=== PATIENT | female | born 1980 | race Caucasian/White ===

== ENCOUNTER → 2016-02-28 | Outpatient (CLI) | payer BC | END | disposition home or self-care (01) | LOC: C.LAB 15:23 | PROVIDERS: ATTEND Obstetrics & Gynecology | DX: O02.0 Blighted ovum and nonhydatidiform mole (principal) ==

== ENCOUNTER → 2016-03-05 | Outpatient (CLI) | payer BC | END | disposition home or self-care (01) | LOC: C.LAB 18:34 | PROVIDERS: ATTEND Obstetrics & Gynecology | DX: O02.0 Blighted ovum and nonhydatidiform mole (principal) ==

== ENCOUNTER → 2016-03-18 | Outpatient (CLI) | payer BC | END | disposition home or self-care (01) | LOC: C.LAB 10:30 | PROVIDERS: ATTEND Obstetrics & Gynecology | DX: O02.0 Blighted ovum and nonhydatidiform mole (principal) ==

== ENCOUNTER → 2016-03-25 | Outpatient (CLI) | payer BC | END | disposition home or self-care (01) | LOC: C.LAB 10:26 | PROVIDERS: ATTEND Obstetrics & Gynecology | DX: O02.0 Blighted ovum and nonhydatidiform mole (principal) ==

== ENCOUNTER → 2016-04-25 | Outpatient (CLI) | payer BC | END | disposition home or self-care (01) | LOC: C.LAB 16:44 | PROVIDERS: ATTEND Obstetrics & Gynecology | DX: O02.0 Blighted ovum and nonhydatidiform mole (principal) ==

== ENCOUNTER → 2016-07-18 | Outpatient (CLI) | payer BC | END | disposition home or self-care (01) | LOC: C.LAB 16:14 | PROVIDERS: ATTEND Obstetrics & Gynecology | DX: Z34.81 Encounter for supervision of other normal pregnancy, first trimester (principal) ==

== ENCOUNTER → 2016-07-20 | Outpatient (CLI) | payer BC | END | disposition home or self-care (01) | LOC: C.LAB 15:55 | PROVIDERS: ATTEND Obstetrics & Gynecology | DX: Z34.81 Encounter for supervision of other normal pregnancy, first trimester (principal) ==

== ENCOUNTER → 2016-07-30 | Outpatient (CLI) | payer BC | END | disposition home or self-care (01) | LOC: C.PAPS 11:56 | PROVIDERS: ATTEND Obstetrics & Gynecology | DX: Z34.81 Encounter for supervision of other normal pregnancy, first trimester (principal) ==

== ENCOUNTER → 2016-07-30 | Outpatient (CLI) | payer BC ==
[2016-08-03 13:59] LABS: CHLAMYDIA TRACH RNA*** NOT DETECTED (NOT DETECTED); GC (NEIS GONORRHOEAE)RNA** NOT DETECTED (NOT DETECTED)
== END | disposition home or self-care (01) ==
LOC: C.LABSPEC 17:38
PROVIDERS: ATTEND Obstetrics & Gynecology
DX: Z34.81 Encounter for supervision of other normal pregnancy, first trimester (principal)

== ENCOUNTER → 2016-10-12 | Outpatient (CLI) | payer BC ==
[2016-10-12 10:46] LABS: BASO % 0.2 %; BASO ABS # 0.02 K/uL (0-0.2); COMPLETE YES; EOS % 2.5 %; HEMATOCRIT 29.9 % (37-47); IG% 0.2 %; LYMPH % 18.1 %; MEAN CELL VOLUME 95.2 fL (80-100); MEAN CORPUSCULAR HEMOGLOBIN 32.5 pg (25-34); MEAN CORPUSCULAR HGB CONC 34.1 g/dl (32-36); MEAN PLATELET VOLUME 10.5 fL (7.4-10.4); MONO % 6.2 %; NEUT % 72.8 %; PLATELET COUNT 181 K/uL (130-400); RED BLOOD COUNT 3.14 M/uL (4.2-5.4); WHITE BLOOD COUNT 9.38 K/uL (4.8-10.8)
[2016-10-12 11:45] LABS: GTGD 50 Grams
== END | disposition home or self-care (01) ==
LOC: C.LAB 08:38
PROVIDERS: ATTEND Obstetrics & Gynecology
DX: Z34.82 Encounter for supervision of other normal pregnancy, second trimester (principal)

== ENCOUNTER → 2017-02-21 | Outpatient (CLI) | payer BC ==
[~2017-02-21] MED LIST: PRENTAB26 PO
--- NOTE | 2017-03-29 10:12 | CODING QUERY NO DIAGNOSIS ---
TREATMENT RENDERED WITHOUT A DIAGNOSIS To promote full compliance with coding requirements relating to patient care, physician participation is requested in all cases of certified professional coder uncertainty. Please assist us with providing a diagnosis/symptom for the test(s) below: A diagnosis/symptom was not documented on your Order. A valid diagnosis/symptom is required to bill all insurances. Please remember that we are unable to code a diagnosis of rule out, probable, possible, questionable, or suspected. Tests that require a diagnosis: DOS: 02/21/17 * GRP B STREP CULT: REC/VAG DIAGNOSIS: Provider Signature: Date: Thank you [facility] Once completed, please kindly fax back to [phone] For questions please call [phone]
== END | disposition home or self-care (01) ==
LOC: C.LABSPEC 14:15
PROVIDERS: ATTEND Obstetrics & Gynecology
DX: Z34.83 Encounter for supervision of other normal pregnancy, third trimester (principal)

== ENCOUNTER 2017-03-20 06:39 | Inpatient (IN) | payer BC ==
[~2017-03-20] VITALS: Ht 154.9 cm; Wt 70.5 kg
[2017-03-20] MEDS ORDERED: LACTATED RINGER'S 1000ML 1,000 ML IV PRN (06:46)
[2017-03-20] MEDS ORDERED: BUTORPHANOL TARTRATE 1 MG/ML VIAL IV STA (06:53)
[2017-03-20] MEDS ORDERED: NURSING VERBAL MED ORDER ONE (07:00)
[2017-03-20] MEDS ORDERED: ONDANSETRON INJ 2 MG/ML 2 ML VIAL ONE ×2 (07:10→18:34)
[2017-03-20] MEDS ORDERED: BUPIVACAINE 0.25% 30 ML VIAL ONE (07:11)
[2017-03-20] MEDS ORDERED: EpHEDrine SULFATE INJ 50 MG/ML AMP ONE (07:11)
[2017-03-20] MEDS ORDERED: FENTANYL CITRATE INJ 50 MCG/1 ML 2 ML VIAL ONE ×2 (07:11→17:55)
[2017-03-20] MEDS ORDERED: FENTANYL 2MCG/ML ROPIV 1.25MG/ML 100ML BAG EPI ONE (07:12)
[2017-03-20] MEDS ORDERED: ONDANSETRON 8 MG/54 ML D5W IV ONE (07:15)
[2017-03-20 07:30] LABS: HEMATOCRIT 34.1 % (37-47); HEMOGLOBIN 11.5 g/dL (12.0-16.0); MEAN CELL VOLUME 96.1 fL (80-100); MEAN CORPUSCULAR HEMOGLOBIN 32.4 pg (25-34); MEAN CORPUSCULAR HGB CONC 33.7 g/dl (32-36); MEAN PLATELET VOLUME 10.3 fL (7.4-10.4); PLATELET COUNT 189 K/uL (130-400); RED CELL DISTRIBUTION WIDTH CV 14.3 % (11.5-14.5); RED CELL DISTRIBUTION WIDTH SD 50.6 fL (36.4-46.3); WHITE BLOOD COUNT 13.72 K/uL (4.8-10.8)
[2017-03-20] MEDS ORDERED: LACTATED RINGER'S 1000ML 500 ML IV PRN ×3 (07:55→19:36)
[2017-03-20] MEDS ORDERED: NALOXONE HCL INJ 1 MG in SODIUM CHLORIDE 0.9% 1000ML 1,000 ML IV PRN ×2 (07:55→19:36)
[2017-03-20] MEDS ORDERED: DiphenhydrAMINE HCL 50 MG/ML VIAL IV PRN ×2 (08:00→19:45)
[2017-03-20] MEDS ORDERED: NALOXONE HCL INJ 0.4 MG/1 ML VIAL/CARP IV PRN (08:00)
[2017-03-20] MEDS ORDERED: ONDANSETRON INJ 2 MG/ML 2 ML VIAL IV PRN ×2 (08:00→19:45)
[2017-03-20] MEDS ORDERED: EpHEDrine SULFATE INJ 50 MG/ML AMP IV PRN ×2 (08:00→19:45)
[2017-03-20] MEDS ORDERED: NALBUPHINE HCL INJ 10 MG/ML AMP IV PRN ×2 (08:00→19:45)
[2017-03-20] MEDS ORDERED: PRENTAB26 PO (08:53)
[2017-03-20 08:58] VITALS: Ht 154.9 cm; Wt 70.5 kg
[2017-03-20] MEDS ORDERED: OXYTOCIN 30 UNITS/500ML NSS IV PRN (10:00)
[2017-03-20] MEDS ORDERED: ONDANSETRON 8 MG/54 ML D5W IV PRN (11:15)
[2017-03-20] MEDS: FENTANYL 2MCG/ML ROPIV 1.25MG/ML 100ML BAG EPI PRN ×2 (13:27→13:30)
[2017-03-20] MEDS: ONDANSETRON INJ 2 MG/ML 2 ML VIAL IV PRN (15:06)
[2017-03-20] MEDS: LACTATED RINGER'S 1000ML 1,000 ML IV SCH ×2 (15:22→17:29)
[2017-03-20] MEDS ORDERED: LIDOCAINE/EPINEPHRINE 2% 1:200,000 20 ML SDV ONE (17:52)
[2017-03-20] MEDS ORDERED: CITRIC ACID/SODIUM CITRATE 15 ML UDC ONE (17:53)
[2017-03-20] MEDS ORDERED: OXYTOCIN INJ 10 UNITS/ML VIAL ONE ×3 (17:54→18:40)
[2017-03-20] MEDS ORDERED: MoRPHine SULFATE PF 1 MG/ML 10 ML AMP/VIAL ONE (17:55)
[2017-03-20] MEDS ORDERED: CEFOXITIN IV 2,000 MG in DEXTROSE 5% 50ML 50 ML IV SCH (18:00)
[2017-03-20] MEDS ORDERED: CITRIC ACID/SODIUM CITRATE 15 ML UDC PO ONE (18:00)
[2017-03-20] MEDS ORDERED: PHENYLEPHRINE 100MCG/ML 5ML SYR ONE ×2 (18:23→19:04)
[2017-03-20] MEDS ORDERED: METHYLERGONOVINE MALEATE 0.2 MG/ML AMP ONE (18:49)
--- NOTE | 2017-03-20 19:03 | HISTORY & PHYSICAL EXAMINATION ---
DATE OF ADMISSION: 03/20/2017 CHIEF COMPLAINT: Intrauterine at term, arrest of labor, tachycardia. HISTORY OF PRESENT ILLNESS: The patient is a 36-year-old 3, para 1. She has had 1 first trimester spontaneous AB. She has had an uneventful course. Her due date is 03/20/2017. She was admitted in spontaneous labor about 5 cm dilated, membranes intact. She received Stadol and then received epidural, membranes ruptured spontaneously after the epidural. We let her labor down, go to full dilatation and she pushed for 2-1/2 hours; however, after 2-1/2 hours of pushing, she was unable to engage and fix the head into the mid pelvis. She also started to develop low grade temperature and a persistent tachycardia. Section was called due to cephalopelvic disproportion and persistent tachycardia. It should be noted that her first delivery was at 37 weeks. At that time, the baby weighed about 6 pounds 14 ounces, girl. She pushed for 4 hours and required a vacuum assist for delivery. The patient states at that time they considered a and it is estimated at the present is not only 3 weeks further along, but significantly heavier than 6 pounds 14 ounces. PAST MEDICAL HISTORY: She has a girl at home, 4 years old in good health. ALLERGIES: STATES SHE IS ALLERGIC TO CODEINE. PAST SURGICAL HISTORY: She had D&E. MEDICAL HISTORY: No history of rheumatic fever, heart disease, heart murmur, diabetes, tuberculosis. SOCIAL HISTORY: No smoking. No alcohol intake. Works as a teacher. FAMILY HISTORY: Mom is 60, dad 60. Three sisters and 1 brother, all in good health. Mother and father in good health. REVIEW OF SYSTEMS: HEAD: No symptoms of frequent or severe headaches. EYES: No symptoms of blurred vision, double vision. EARS: No symptoms of frequent ear infections, difficulty hearing. NOSE: No symptoms of frequent nosebleeds, difficulty breathing through her nose. THROAT: No symptoms of frequent or severe sore throat, difficulty swallowing. RESPIRATORY SYSTEM: No history of asthma, chest pain, shortness of breath. PHYSICAL EXAMINATION: GENERAL: Well-developed, well-nourished 36-year-old white female, alert, oriented x3 and cooperative in no acute distress, appears her stated age. EYES: Conjunctivae are pink. Sclerae white. No evidence of jaundice. EARS: Had normal light reflex bilaterally. NOSE: Had normal mucosa. Septum is midline. There were no polyps. THROAT: Had no erythema or evidence of infection. Teeth are in good state of repair. HEAD: Was normocephalic, normal distribution of hair. NECK: Supple. Trachea midline. Thyroid is not enlarged. There is no adenopathy appreciated. Both carotids are of good intensity. CHEST: Clear to auscultation and percussion. No wheezes, rales or rhonchi appreciated. HEART: Had regular rhythm. S1 and S2 are normal. BREASTS: Normal. ABDOMEN: Revealed an estimated weight of 8 pounds. PELVIC: Large amount of molding, vertex presentation, 0 to -1 station. We were unable to palpate the sutures. MUSCULOSKELETAL: Revealed no calf tenderness. IMPRESSIONS OF THIS CASE: Status post dilatation and evacuation, arrest of labor secondary to cephalopelvic disproportion, suspected macrosomia, tachycardia.
[2017-03-20] MEDS ORDERED: OXYTOCIN INJ 20 UNITS in LACTATED RINGER'S 1000ML 1,000 ML IV SCH (19:20)
[2017-03-20] MEDS ORDERED: MAGNESIUM HYDROXIDE SUSP 30 ML UDC PO PRN (19:30)
[2017-03-20] MEDS ORDERED: SUPERCREAM 0.870 % 15GM JAR EXT PRN (19:30)
[2017-03-20] MEDS ORDERED: SENNA 8.6 MG TAB PO PRN (19:30)
[2017-03-20] MEDS ORDERED: HYDROCORTISONE ACETATE 25 MG SUPP PR PRN (19:30)
[2017-03-20] MEDS ORDERED: BENZOCAINE 20% AER SPR 82.5 GM CAN EXT PRN (19:30)
[2017-03-20] MEDS ORDERED: DIPHTHERIA/TETANUS/PERTUSSIS 0.5 ML SYR/VIAL IM. ONE (19:30)
[2017-03-20] MEDS ORDERED: LANOLIN OINT EXT PRN (19:30)
[2017-03-20] MEDS ORDERED: SODIUM CHLORIDE 0.9% 1000ML 1,000 ML IV PRN (19:36)
[2017-03-20] MEDS ORDERED: NALOXONE HCL INJ 0.08 MG in SYRINGE 1.8 ML IV PRN (19:36)
[2017-03-20] MEDS ORDERED: PROMETHAZINE HCL INJ 25 MG in SODIUM CHLORIDE 0.9% 50ML 50 ML IV STA (19:43)
[2017-03-20] MEDS ORDERED: NALOXONE HCL 0.4 MG/1 ML VIAL/CARP IV PRN (19:45)
[2017-03-20] MEDS ORDERED: NO NARCOTICS OR SEDATIVES SCH (19:45)
[2017-03-20] MEDS ORDERED: MoRPHine SULFATE PF 1 MG/ML 10 ML AMP/VIAL EPI PRN (19:45)
[2017-03-20] MEDS ORDERED: MEPERIDINE HCL 25 MG/ML CARP IV PRN (19:45)
[2017-03-20] MEDS: DOCUSATE SODIUM 100 MG CAP PO SCH (20:00)
--- NOTE | 2017-03-20 20:16 | Anesthesiology Progress Note ---
Anesthesia Post Op Note Date & Time Mar 20, 2017 at 20:16 Vital Signs Pain Intensity: 1 Notes Mental Status: alert / awake / arousable, participated in evaluation Pt Amnestic to Procedure: Yes Nausea / Vomiting: adequately controlled, improving with treatment Pain: adequately controlled Airway Patency, RR, SpO2: stable & adequate BP & HR: stable & adequate Hydration State: stable & adequate Neuraxial Anesthesia: was administered, sensory block is resolving Anesthetic Complications: no major complications apparent
--- NOTE | 2017-03-20 20:46 | OPERATIVE REPORT ---
DATE OF OPERATION: 03/20/2017 PROCEDURE: Primary low segment section. INDICATIONS FOR SURGERY: Arrest of labor and tachycardia. PREOPERATIVE DIAGNOSES: Cephalopelvic disproportion, suspected macrosomia. POSTOPERATIVE DIAGNOSIS: Delivered live 8 pound female infant direct OP. SURGEON: Dr. Ma. WINE SPECIALIST: Dr. Carty. ESTIMATED BLOOD LOSS: 600 mL. ANESTHESIA: Spinal. OPERATIVE FINDINGS AND PROCEDURE: The patient had been brought to the OR table, correctly identified by armband and conversation. She had an epidural, but the effectiveness of the epidural was marginal, so the catheter was removed and a spinal was administered and good spinal level was obtained. Lower abdomen was painted with an alcohol based sterilizing solution, draped in usual sterile fashion. Adequacy of the anesthesia was tested and was found to be good and a Pfannenstiel incision was made, carried down to the anterior fascia by sharp dissection. Hemostasis was secured by electrocauterization. Fascia was incised transversely the underlying muscle by blunt and sharp dissection. Recti muscles were in the midline. Peritoneum was carefully raised and entered. The lower uterine segment was exposed with a bladder blade. The bladder was pretty high due to the fact that the patient was in labor for a long time. Incision was made above the vesicouterine fold. The bladder was undermined bluntly and pushed out of the operative field. Lower uterine segment was scored with a knife. On entering the uterine cavity, cord popped out, head was in the pelvis in a direct occiput posterior position. I dislodged the head with my right hand, got my left hand down front of the head, rotated the head to direct occiput anterior position and then delivered through the lower uterine segment. Following this, cord was clamped and cut. The was attended to by the furniture delivery driver who was present at the time of delivery. Cord gases were sent. Cord blood was sent. A culture was taken of the shiny side of the placenta for aerobic and anaerobic bacteria. Placenta was then removed manually. Uterus was cleansed with a clean sponge. Uterus, tubes, and ovaries were brought out through the incision. The lower uterine defect was grasped with ringed forceps along with the upper uterine defect and then sutured with a continuous interlocking suture of heavy chromic and there were 1 or 2 additional [id number] sutures of chromic to create good hemostasis. On the patient's left side, got do a lateral suture of chromic below the incision to get good hemostasis. After this, we put a second layer over with Vicryl and this approximated the fascial layer over the muscular layer and then used about 3 interrupted [id number] sutures of Vicryl which also complete the approximation process and to create good hemostasis. We then used a 3-0 chromic to approximate the vesicouterine fold, inspected everything, hemostasis was good. The pelvis was cleansed of all blood clots and debris. Uterus, tubes, and ovaries were reinserted in the incision. Careful anatomical approximation of the anterior abdominal wall was performed. Peritoneum was closed with a mattress suture of chromic catgut. Recti muscles were approximated with interrupted [id number] suture of chromic catgut. The fascia was closed with continuous interlocking suture of Vicryl on each side, tied in the midline. SubQ was approximated with continuous plain and skin edges were approximated with staple clips. I attest to the content of the Intraoperative Record and any orders documented therein. Any exception s are noted below.
[2017-03-20] MEDS: SIMETHICONE 80 MG CHEW PO SCH (21:00)
[2017-03-20] MEDS: KETOROLAC TROMETHAMINE 30 MG/ML VIAL IV. PRN (21:10)
[2017-03-20 22:30] VITALS: O2SAT 96
[2017-03-20 22:55] VITALS: BP 109/51; PULSE 72; TEMP 36.7; O2SAT 96
[2017-03-20 23:00] VITALS: O2SAT 97
[2017-03-20 23:20] VITALS: O2SAT 96
[2017-03-21] VITALS (18 sets, daily range): BP systolic 94–110; BP diastolic 51–68; PULSE 71–84; TEMP 36.6–36.8; O2SAT 94–100
[2017-03-21] MEDS: LACTATED RINGER'S 1000ML 1,000 ML IV SCH (04:58)
[2017-03-21 07:26] LABS: HEMOGLOBIN 9.1 g/dL (12.0-16.0); MEAN CELL VOLUME 95.7 fL (80-100); MEAN CORPUSCULAR HEMOGLOBIN 32.3 pg (25-34); MEAN CORPUSCULAR HGB CONC 33.7 g/dl (32-36); MEAN PLATELET VOLUME 10.4 fL (7.4-10.4); PLATELET COUNT 159 K/uL (130-400); RED CELL DISTRIBUTION WIDTH CV 14.5 % (11.5-14.5); RED CELL DISTRIBUTION WIDTH SD 50.7 fL (36.4-46.3); WHITE BLOOD COUNT 22.91 K/uL (4.8-10.8)
[2017-03-21] MEDS: FERROUS SULFATE 325 MG TAB PO SCH (07:31)
[2017-03-21] MEDS: DOCUSATE SODIUM 100 MG CAP PO SCH ×2 (07:31→20:56)
[2017-03-21] MEDS: SIMETHICONE 80 MG CHEW PO SCH ×4 (07:31→20:56)
[2017-03-21] MEDS: PRENATAL VITAMIN TAB PO SCH (07:31)
[2017-03-21 07:34] LABS: BASO ABS # 0.01 K/uL (0-0.2); EOS % 0.2 %; EOS ABS # 0.04 K/uL (0-0.5); IG# 0.09 K/uL (0.00-0.02); LYMPH % 7.6 %; LYMPH ABS # 1.73 K/uL (1.2-3.4); MONO % 5.8 %; MONO ABS # 1.34 K/uL (0.11-0.59)
--- NOTE | 2017-03-21 09:24 | Progress Note ---
Subjective Mar 21, 2017. Subjective conversation w/ patient Ambulation: limited ambulation Voiding: rene catheter in place Passing Gas: No Diet Tolerance: Regular Diet Lochia: Small Feeding Type: Breast Feeding Review of Systems Constitutional: + fever Objective Vital Signs Date Time Temp Pulse Resp B/P (MAP) Pulse Ox O2 Delivery O2 Flow Rate FiO2 03/21/17 08:30 18 98 03/21/17 07:30 97 Room Air 03/21/17 07:30 18 97 03/21/17 07:30 36.8 78 18 94/55 (68) 97 Room Air 03/21/17 07:00 18 95 03/21/17 06:00 18 97 03/21/17 05:00 18 94 03/21/17 04:00 18 94 03/21/17 03:30 36.8 84 18 106/52 (70) 96 Room Air 03/21/17 03:00 18 95 03/21/17 02:00 18 96 03/21/17 01:00 18 97 03/21/17 00:21 96 Room Air 03/21/17 00:15 36.7 72 18 109/51 (70) 96 Room Air 03/21/17 00:00 18 97 03/20/17 23:00 18 97 03/20/17 22:30 18 96 Physical Exam General Appearance: WELL-APPEARING Respiratory/Chest: lungs clear Abdomen: normal bowel sounds, non tender Fundus: Firm, Non-Tender Incision Description: Clean, Dry & Intact Laboratory Results Last 24 Hours Test 03/21/17 06:28 White Blood Count 22.91 K/uL Red Blood Count 2.82 M/uL Hemoglobin 9.1 g/dL Hematocrit 27.0 % Mean Corpuscular Volume 95.7 fL Mean Corpuscular Hemoglobin 32.3 pg Mean Corpuscular Hemoglobin Concent 33.7 g/dl Platelet Count 159 K/uL Mean Platelet Volume 10.4 fL Neutrophils (%) (Auto) 86.0 % Lymphocytes (%) (Auto) 7.6 % Monocytes (%) (Auto) 5.8 % Eosinophils (%) (Auto) 0.2 % Basophils (%) (Auto) 0.0 % Neutrophils # (Auto) 19.70 K/uL Lymphocytes # (Auto) 1.73 K/uL Monocytes # (Auto) 1.34 K/uL Eosinophils # (Auto) 0.04 K/uL Basophils # (Auto) 0.01 K/uL RDW Standard Deviation 50.7 fL RDW Coefficient of Variation 14.5 % Immature Granulocyte % (Auto) 0.4 % Immature Granulocyte # (Auto) 0.09 K/uL Assessment and Plan Problem List Medical Problems: (1) GERD (gastroesophageal reflux disease) Status: Chronic Post-Op Day#: 1 Continue Routine Care: bandage removed
[2017-03-21] MEDS: KETOROLAC TROMETHAMINE 30 MG/ML VIAL IV. PRN (11:05)
[2017-03-21] MEDS ORDERED: ONDANSETRON INJ 2 MG/ML 2 ML VIAL IV PRN (12:30)
[2017-03-21] MEDS ORDERED: KETOROLAC TROMETHAMINE 30 MG/ML VIAL IV. PRN (12:30)
[2017-03-21] MEDS ORDERED: MEPERIDINE HCL 50 MG/ML CARP IV PRN ×2 (12:30)
[2017-03-21] MEDS ORDERED: DiphenhydrAMINE HCL 50 MG/ML VIAL IV PRN (12:30)
[2017-03-21] MEDS ORDERED: OXYCODONE/ACETAMINOPHEN 5-325 TAB PO PRN (12:30)
[2017-03-21] MEDS ORDERED: DC INTRASPINAL MORPHINE ONE (12:30)
[2017-03-21] MEDS ORDERED: ZOLPIDEM TARTRATE 5 MG TAB PO PRN (12:30)
[2017-03-21] MEDS: IBUPROFEN 600 MG TAB PO PRN ×2 (17:23→22:22)
[2017-03-21] MEDS: OXYCODONE/ACETAMINOPHEN 5-325 TAB PO PRN ×2 (19:00→23:28)
[2017-03-21] MEDS: ONDANSETRON INJ 2 MG/ML 2 ML VIAL IV PRN ×2 (19:00→23:23)
[2017-03-21] MEDS ORDERED: BISACODYL 5 MG TABEC PO ONE (22:00)
[2017-03-22 00:15] VITALS: BP 96/58; PULSE 70; TEMP 36.7
[2017-03-22] MEDS: OXYCODONE/ACETAMINOPHEN 5-325 TAB PO PRN ×5 (03:37→20:09)
[2017-03-22] MEDS: IBUPROFEN 600 MG TAB PO PRN ×5 (03:37→20:08)
[2017-03-22] MEDS: ONDANSETRON INJ 2 MG/ML 2 ML VIAL IV PRN (07:58)
[2017-03-22] MEDS: PRENATAL VITAMIN TAB PO SCH (07:59)
[2017-03-22] MEDS: SIMETHICONE 80 MG CHEW PO SCH ×4 (07:59→19:55)
[2017-03-22] MEDS: FERROUS SULFATE 325 MG TAB PO SCH (07:59)
[2017-03-22] MEDS: DOCUSATE SODIUM 100 MG CAP PO SCH ×2 (08:00→19:55)
[2017-03-22 08:10] VITALS: BP 96/63; PULSE 76; TEMP 36.7
--- NOTE | 2017-03-22 09:00 | Progress Note ---
Subjective Mar 22, 2017. Subjective conversation w/ patient Ambulation: ambulating normally Voiding: no voiding problems, rene catheter in place Passing Gas: Yes Diet Tolerance: Regular Diet Lochia: Small Feeding Type: Breast Feeding Review of Systems Constitutional: + fever Objective Vital Signs Date Time Temp Pulse Resp B/P (MAP) Pulse Ox O2 Delivery O2 Flow Rate FiO2 03/22/17 00:15 Room Air 03/22/17 00:15 36.7 70 18 96/58 (71) Room Air 03/21/17 16:50 99 Room Air 03/21/17 16:50 36.7 80 20 110/68 (82) 99 Room Air 03/21/17 12:30 18 100 03/21/17 12:30 36.6 71 18 94/55 (68) 100 Room Air 03/21/17 11:30 20 98 03/21/17 10:30 18 97 03/21/17 09:30 18 98 Physical Exam General Appearance: WELL-APPEARING Respiratory/Chest: lungs clear Abdomen: normal bowel sounds, non tender Fundus: Firm, Non-Tender Incision Description: Clean, Dry & Intact Extremities: no pedal edema, no calf tenderness Assessment and Plan Problem List Medical Problems: (1) GERD (gastroesophageal reflux disease) Status: Chronic Post-Op Day#: 2 Continue Routine Care: hypoactive bowel sounds
[2017-03-22] MEDS: ONDANSETRON 8 MG TAB PO PRN ×2 (12:28→19:55)
[2017-03-22 16:15] VITALS: BP 90/55; PULSE 69; TEMP 36.4
[2017-03-22] MEDS ORDERED: BISACODYL 10 MG SUPP PR PRN (19:30)
[2017-03-23 00:30] VITALS: BP 100/63; PULSE 71; TEMP 36.7
[2017-03-23] MEDS: IBUPROFEN 600 MG TAB PO PRN ×5 (00:58→17:48)
[2017-03-23] MEDS: OXYCODONE/ACETAMINOPHEN 5-325 TAB PO PRN ×5 (00:59→17:49)
--- NOTE | 2017-03-23 07:47 | Progress Note ---
Subjective Mar 23, 2017. Subjective conversation w/ patient Ambulation: ambulating normally Voiding: no voiding problems, rene catheter in place Passing Gas: Yes Diet Tolerance: Regular Diet Lochia: Small Feeding Type: Breast Feeding Review of Systems Constitutional: + fever Objective Vital Signs Date Time Temp Pulse Resp B/P (MAP) Pulse Ox O2 Delivery O2 Flow Rate FiO2 03/23/17 00:30 Room Air 03/23/17 00:30 36.7 71 18 100/63 (75) Room Air 03/22/17 16:15 Room Air 03/22/17 16:15 36.4 69 16 90/55 (67) Room Air 03/22/17 08:10 36.7 76 20 96/63 (74) Room Air 03/22/17 08:10 Room Air Physical Exam General Appearance: WELL-APPEARING Respiratory/Chest: lungs clear Abdomen: normal bowel sounds, non tender Fundus: Firm, Non-Tender Incision Description: Clean, Dry & Intact Extremities: no pedal edema, no calf tenderness Assessment and Plan Problem List Medical Problems: (1) GERD (gastroesophageal reflux disease) Status: Chronic Post-Op Day#: 3 Continue Routine Care: incision clean and dry
--- NOTE | 2017-03-23 07:50 | Discharge Instructions ---
Discharge Instructions Date of Service Mar 23, 2017. Admission Reason for Admission: LABOR Discharge Discharge Diagnosis / Problem: cephalopelvic disproportion hgb 9.1 Discharge Goals Goal(s): Routine recovery after Activity Recommendations Activity Limitations: as noted below ACTIVITY RECOMMENDATIONS: * Gradual return to full activity over the next 2-3 weeks. * No lifting - nothing heavier than baby over the next 2-3 weeks. * Do not engage in vigorous exercise, sexual activity or sports for 6 weeks. * Do not drive or operate any motorized equipment for 14 days. * You may shower/bathe daily. DIET: Resume Previous Diet If Breast-feeding: * Increase caloric intake by 500 calories, eat 3 well balanced meals, 2 high protein snacks a day and drink 6-8 8oz. glasses of fluid per day. BREAST CARE: If you are not breast feeding: * Wear a supportive bra 24 hours a day for one to two weeks. * Avoid stimulating your breasts and nipples as much as possible during the first few weeks after delivery. * When taking a shower, have the warm water hit your back, not breasts. * When your breasts feel full, apply ice packs. Usually three to four times a day helps ease the discomfort. * Take a mild pain medication (Tylenol / Motrin) when you are uncomfortable. If breast feeding: * Use breast milk to lubricate nipples. Lansinoh cream may be used for sore nipples. You do not need to remove cream prior to breast feeding. If using a different brand of cream, check the label for directions regarding removal of cream prior to nursing. * Wear a supportive bra. * If having problems with breasts or breast feeding, call a disaster recovery consultant or your health care provider. VITAMINS: * One tablet daily. Continue taking while or until you have your check up in 6 weeks. SPECIAL CARE INSTRUCTIONS: * Vaginal rest (no tampons, douching, intercourse) until after doctor's visit. * control as discussed with doctor. * Verbalizes understanding of car seat law as reviewed with patient by nursing. * Car Seat hand-out given and reviewed with patient by nursing. * Shaken baby information reviewed with patient by nursing. Call you doctor if: * Heavy bleeding (saturating a pad an hour) or passing clots the size of your fist. Bleeding has a foul smelling odor. * A fever greater than 100.4 degrees F (38 degrees C) on two occasions four hours apart and/or chills. * Unusual pain in the pelvic or vaginal areas. Pain should improve each day . * Call the doctor for any increased redness, drainage or swelling around the incision and any pain unrelieved by prescribed pain medication. * Signs and symptoms of phlebitis(possible blood clots forming in the veins): leg pain, warm, red or swollen area on leg. * "Baby Blues" lasting longer than two weeks. If you have any questions or concerns, call your health care practitioner at [phone]. FOLLOW-UP VISIT: Follow-up visit for examination in 6 weeks. Incision check (staple removal) in 1 week. Please call office at [phone] if not already scheduled. . Instructions / Follow-Up Instructions / Follow-Up ACTIVITY RECOMMENDATIONS: * Gradual return to full activity over the next 2-3 weeks. * No lifting - nothing heavier than baby over the next 2-3 weeks. * Do not engage in vigorous exercise, sexual activity or sports for 6 weeks. * Do not drive or operate any motorized equipment for 14 days. * You may shower/bathe daily. DIET: Resume Previous Diet If Breast-feeding: * Increase caloric intake by 500 calories, eat 3 well balanced meals, 2 high protein snacks a day and drink 6-8 8oz. glasses of fluid per day. BREAST CARE: If you are not breast feeding: * Wear a supportive bra 24 hours a day for one to two weeks. * Avoid stimulating your breasts and nipples as much as possible during the first few weeks after delivery. * When taking a shower, have the warm water hit your back, not breasts. * When your breasts feel full, apply ice packs. Usually three to four times a day helps ease the discomfort. * Take a mild pain medication (Tylenol / Motrin) when you are uncomfortable. If breast feeding: * Use breast milk to lubricate nipples. Lansinoh cream may be used for sore nipples. You do not need to remove cream prior to breast feeding. If using a different brand of cream, check the label for directions regarding removal of cream prior to nursing. * Wear a supportive bra. * If having problems with breasts or breast feeding, call a disaster recovery consultant or your health care provider. VITAMINS: * One tablet daily. Continue taking while or until you have your check up in 6 weeks. SPECIAL CARE INSTRUCTIONS: * Vaginal rest (no tampons, douching, intercourse) until after doctor's visit. * control as discussed with doctor. * Verbalizes understanding of car seat law as reviewed with patient by nursing. * Car Seat hand-out given and reviewed with patient by nursing. * Shaken baby information reviewed with patient by nursing. Call you doctor if: * Heavy bleeding (saturating a pad an hour) or passing clots the size of your fist. Bleeding has a foul smelling odor. * A fever greater than 100.4 degrees F (38 degrees C) on two occasions four hours apart and/or chills. * Unusual pain in the pelvic or vaginal areas. Pain should improve each day . * Call the doctor for any increased redness, drainage or swelling around the incision and any pain unrelieved by prescribed pain medication. * Signs and symptoms of phlebitis(possible blood clots forming in the veins): leg pain, warm, red or swollen area on leg. * "Baby Blues" lasting longer than two weeks. If you have any questions or concerns, call your health care practitioner at [phone]. FOLLOW-UP VISIT: Follow-up visit for examination in 6 weeks. Incision check (staple removal) in 1 week. Please call office at [phone] if not already scheduled. Current Hospital Diet Patient's current hospital diet: Regular OB Diet Discharge Diet Recommended Diet: Regular Diet Procedures Procedures Performed: Lower transverse uterine Caesarean section Pending Studies Studies pending at discharge: no Medical Emergencies . Who to Call and When: Medical Emergencies: If at any time you feel your situation is an emergency, please call 911 immediately. . Non-Emergent Contact Non-Emergency issues call your: Bed And Breakfast Cook Call Non-Emergent contact if: temperature is above 100.5 . . "Provider Documentation" section prepared by Javier Ma. . VTE Core Measure Inpt VTE Proph given/why not?: Treatment not indicated
[2017-03-23 07:55] VITALS: BP 95/55; PULSE 62; TEMP 36.8
--- NOTE | 2017-03-23 08:12 | DISCHARGE SUMMARY ---
HOSPITAL COURSE: Mrs. Tucker was admitted in active labor. She was about 5-6 cm dilated on admission. She eventually went on to have IV Stadol and epidural for pain control, went to full dilatation, had her contractions augmented with IV Pitocin and pushed for 2-1/2 hours; however, after pushing for 2-1/2 hours, she was unable to engage the head into the mid pelvis. The sutures of the head were not palpable and it was suspected that she was in occiput posterior. Her prior delivery had been a vaginal delivery; however, it was a vacuum-assisted delivery after a 4-hour push at about 37 weeks with the baby weighing 6 pounds 14 ounces. Baby was estimated at well over 7 pounds. The patient was diagnosed with cephalopelvic disproportion, taken to the OR and underwent primary low segment section without incident. At the time of surgery, the position of the head was direct OP and had to be rotated anteriorly to get the head out through the uterus. Later, we found out the baby's weight was 8 pounds, even postoperatively, she did well. We did culture the placenta at the time of surgery, and this turned out to be negative. Her postoperative course was smooth. She did not have a temperature. Bleeding was minimal. Her preoperative hemoglobin was 11.5, hematocrit 34.1. Postoperatively, hemoglobin fell to 9.1, hematocrit 27.0. At time of discharge, she was ambulating well, eating well, having bowel movements, incision was clean and dry. She was given prescriptions for Percocet, Motrin and Zofran for control of pain and for control of nausea. She was instructed to return to the office in about a week for removal of adriana.
[2017-03-23] MEDS: ONDANSETRON 8 MG TAB PO PRN ×2 (09:16→17:55)
[2017-03-23] MEDS: FERROUS SULFATE 325 MG TAB PO SCH (09:16)
[2017-03-23] MEDS: DOCUSATE SODIUM 100 MG CAP PO SCH (09:16)
[2017-03-23] MEDS: SIMETHICONE 80 MG CHEW PO SCH ×3 (09:16→17:47)
[2017-03-23 15:30] VITALS: BP 106/64; PULSE 71; TEMP 36.5
[2017-03-23 17:23] VITALS: BP_DIAS 64; PULSE 71; TEMP 36.5
== END 2017-03-23 18:38 | disposition home or self-care (01) | DRG 766 ==
LOC: C.OPB 06:39 → C.LD 06:39 → C.OPB 06:48 → C.OBG 22:26
PROVIDERS: ADMIT Obstetrics & Gynecology; ATTEND Obstetrics & Gynecology
PROC: 10D00Z1 Extraction of Products of Conception, Low, Open Approach (ICD-10-PCS; principal; 2017-03-20 18:08)
DX: O33.9 Maternal care for disproportion, unspecified (principal); O76 Abnormality in fetal heart rate and rhythm complicating labor and delivery; O36.63X1 Maternal care for excessive fetal growth, third trimester, fetus 1; O09.523 Supervision of elderly multigravida, third trimester; Z37.0 Single live birth; Z3A.40 40 weeks gestation of pregnancy

== ENCOUNTER → 2017-04-12 | Outpatient (CLI) | payer BC | END | disposition home or self-care (01) | LOC: C.LABSPEC 14:54 | PROVIDERS: ATTEND Obstetrics & Gynecology | DX: N39.0 Urinary tract infection, site not specified (principal) ==

== ENCOUNTER → 2017-05-09 | Outpatient (CLI) | payer BC | END | disposition home or self-care (01) | LOC: C.PAPS 14:34 | PROVIDERS: ATTEND Obstetrics & Gynecology | DX: Z39.2 Encounter for routine postpartum follow-up (principal); R87.612 Low grade squamous intraepithelial lesion on cytologic smear of cervix (LGSIL) ==

== ENCOUNTER → 2017-05-21 | Outpatient (CLI) | payer BC ==
--- NOTE | 2017-05-21 11:05 | DIAGNOSTIC IMAGING REPORT ---
ABDOMINAL ULTRASOUND, RIGHT UPPER QUADRANT HISTORY: Liver lesion. COMPARISON: Right upper quadrant ultrasound January 18, 2016. FINDINGS: Liver morphology is normal. A 1 cm right hepatic lobe cyst is unchanged since exam of January 18, 2016. No additional hepatic lesions are present. The gallbladder is normal. There are no gallstones. There is no biliary ductal dilatation. The pancreas is partially obscured by overlying bowel gas. There is no right hydronephrosis. IMPRESSION: 1. No change in a 1 cm right hepatic lobe cyst since ultrasound of January 18, 2016. This lesion is benign. 2. No gallstones or biliary ductal dilatation. Electronically signed by: Ivan Stratton M.D. 05/21/2017 11:04 AM Dictated Date/Time: 05/21/2017 11:02 AM
== END | disposition home or self-care (01) ==
LOC: C.ULTR 09:30
PROVIDERS: ATTEND Physician Assistant
DX: K76.9 Liver disease, unspecified (principal)

== ENCOUNTER → 2017-06-04 | Outpatient (CLI) | payer BC | END | disposition home or self-care (01) | LOC: C.PAPS 15:06 | PROVIDERS: ATTEND Obstetrics & Gynecology | DX: R87.612 Low grade squamous intraepithelial lesion on cytologic smear of cervix (LGSIL) (principal) ==

== ENCOUNTER → 2017-06-04 | Outpatient (CLI) | payer BC | END | disposition home or self-care (01) | LOC: C.PATHSPEC 05-28 15:04 | PROVIDERS: ATTEND Obstetrics & Gynecology | DX: R87.612 Low grade squamous intraepithelial lesion on cytologic smear of cervix (LGSIL) (principal) ==

== ENCOUNTER → 2017-10-03 | Outpatient (CLI) | payer BC ==
[2017-10-03 17:28] LABS: BASO % 0.5 %; BASO ABS # 0.04 K/uL (0-0.2); EOS % 2.4 %; HEMATOCRIT 35.9 % (37-47); HEMOGLOBIN 11.6 g/dL (12.0-16.0); IG# 0.01 K/uL (0.00-0.02); LYMPH % 26.4 %; LYMPH ABS # 2.22 K/uL (1.2-3.4); MEAN CELL VOLUME 100.3 fL (80-100); MEAN CORPUSCULAR HEMOGLOBIN 32.4 pg (25-34); MEAN CORPUSCULAR HGB CONC 32.3 g/dl (32-36); MEAN PLATELET VOLUME 11.4 fL (7.4-10.4); MONO % 5.5 %; MONO ABS # 0.46 K/uL (0.11-0.59); NEUT % 65.1 %; NEUT ABS # 5.49 K/uL (1.4-6.5); PLATELET COUNT 239 K/uL (130-400); RED CELL DISTRIBUTION WIDTH CV 13.2 % (11.5-14.5); RED CELL DISTRIBUTION WIDTH SD 48.8 fL (36.4-46.3); WHITE BLOOD COUNT 8.42 K/uL (4.8-10.8)
[2017-10-03 18:08] LABS: ALBUMIN 3.8 gm/dl (3.4-5.0); ALKALINE PHOSPHATASE 39 U/L (45-117); ALT/SGPT 31 U/L (12-78); AST/SGOT 22 U/L (15-37); BLOOD UREA NITROGEN 11 mg/dl (7-18); CALCIUM 8.3 mg/dl (8.5-10.1); CARBON DIOXIDE 24 mmol/L (21-32); CREATININE 0.71 mg/dl (0.60-1.20); GLUCOSE 75 mg/dl (70-99); POTASSIUM 3.5 mmol/L (3.5-5.1); SODIUM 137 mmol/L (136-145); TOTAL PROTEIN 7.2 gm/dl (6.4-8.2)
== END | disposition home or self-care (01) ==
LOC: C.LABBFT 12:05
PROVIDERS: ATTEND Physician Assistant Medical
DX: L98.9 Disorder of the skin and subcutaneous tissue, unspecified (principal)

== ENCOUNTER → 2017-10-10 | Outpatient (CLI) | payer BC | END | disposition home or self-care (01) | LOC: C.PAPS 14:51 | PROVIDERS: ATTEND Obstetrics & Gynecology | DX: R87.612 Low grade squamous intraepithelial lesion on cytologic smear of cervix (LGSIL) (principal) ==

== ENCOUNTER → 2017-10-11 | Outpatient (CLI) | payer BC | END | disposition home or self-care (01) | LOC: C.LABBFT 08:48 | PROVIDERS: ATTEND Physician Assistant Medical | DX: D64.9 Anemia, unspecified (principal) ==